=== PATIENT | female | born 1940 | race Caucasian/White ===

== ENCOUNTER 2016-07-29 11:54 | Observation (INO) | payer BC, MEDICARE ==
[~2016-07-29] VITALS: Ht 154.9 cm; Wt 78.0 kg
[2016-07-29] VITALS (7 sets, daily range): BP systolic 110–144; BP diastolic 66–80; PULSE 89–110; RESP 18–20; TEMP 98–98.8; O2SAT 92–97
[~2016-07-29 11:54] MED LIST: COLA100C3 PO; LEVO25TA4 PO; NIFE15TA PO; OXYC1CAP PO; ZYRT10TA PO
--- NOTE | 2016-07-29 12:12 | PD ---
HPI Chief Complaint: Neuro Symptoms/ Deficits Time Seen by Provider: 12:55 Travel History International Travel<30 days: No Contact w/Intl Traveler<30days: No Traveled to known affect area: No History of Present Illness HPI This is a 76-year-old female who was diagnosed with pancreatic cancer in April of this year. She presents via EMS for evaluation of general weakness. Per EMS they were called by her son who reports that she has a history of dementia, pancreatic cancer. She has been generally malaised today. On examination the patient is complaining of pain in her head and in her epigastric abdomen. History is limited secondary to patient being a poor historian. She is denying any chest pain, shortness of breath, nausea, vomiting , diarrhea, constipation, fevers, chills, cough, congestion. PFSH Past Medical History Hx Anticoagulant Therapy: No (pt had pe in 2008 and was placed on anticoag therapy but not taking it) Arthritis: Yes Anxiety: Yes Cardiovascular Problems: No Diminished Hearing: No Deep Vein Thrombosis: Yes (PE 2008) Endocrine: No GERD: Yes Genitourinary: No Immune Disorder: No Neurologic: No Reproductive: No Respiratory: No (allergies ) Immunizations Current: No : 1 Para: 0 Miscarriage: 1 : 0 Ectopic : No Ovarian Cysts: Yes Dilation and Curettage (D&C): Yes Tubal Ligation: No Past Surgical History Abdominal Surgery: Yes (APPY, CHOLEY, SPLEENECTOMY) Appendectomy: Yes Body Medical Devices: c spine pin Cholecystectomy: Yes Eye Surgery: Yes (LENS TRANSPLANT BILAT) Gynecologic Surgery: Yes (HYSTERECTOMY) Hysterectomy: Yes Oral Surgery: Yes (peridontal) Tonsillectomy: Yes Social History Alcohol Use: No Tobacco Use: No Substance Use: No Allergies-Medications (Allergen,Severity, Reaction): Coded Allergies: Codeine (Verified Allergy, Severe, 07/29/16) Penicillin (Verified Allergy, Severe, 07/29/16) Gluten (Verified Allergy, Unknown, 07/29/16) Sulfa (Verified Allergy, Unknown, 07/29/16) Reported Meds & Prescriptions Reported Meds & Active Scripts Active Colace (Docusate Sodium) 100 Mg Cap 100 Mg PO BID Oxycodone (Oxycodone HCl) 5 Mg Cap 5 Mg PO Q4H PRN Levothyroxine (Levothyroxine Sodium) 25 Mcg Tab 25 Mcg PO DAILY@0600 30 Days Nifedical XL (Nifedipine) 60 Mg Tab 60 Mg PO Q12HR 30 Days Reported Zyrtec Allergy (Cetirizine HCl) 10 Mg Tab 10 Mg PO DAILY Review of Systems ROS Limitations: Poor Historian Except as stated in HPI: all other systems reviewed are Neg Physical Exam Exam Limitations: Poor Historian Narrative GENERAL: Well-developed well-nourished female in no acute distress SKIN: Warm and dry. HEAD: Atraumatic. Normocephalic. EYES: Pupils equal and round. No scleral icterus. No injection or drainage. ENT: No nasal bleeding or discharge. Mucous membranes pink and moist. NECK: Trachea midline. No JVD. CARDIOVASCULAR: Regular rate and rhythm. No murmur appreciated. RESPIRATORY: No accessory muscle use. Clear to auscultation. Breath sounds equal bilaterally. GASTROINTESTINAL: Abdomen soft, tender to palpation in the epigastrium without guarding. MUSCULOSKELETAL: No obvious deformities. No clubbing. No cyanosis. No edema. NEUROLOGICAL: Awake and alert. No obvious cranial nerve deficits. Motor grossly within normal limits. Normal speech. Alert to person, place, not time. Data Data Last Documented VS Vital Signs Date Time Temp Pulse Resp B/P Pulse Ox O2 Delivery O2 Flow Rate FiO2 07/29/16 13:12 96 Room Air 07/29/16 12:11 105 18 07/29/16 12:03 98.7 110/66 Orders Electrocardiogram (07/29/16 12:10) Complete Blood Count With Diff (07/29/16 12:10) Comprehensive Metabolic Panel (07/29/16 12:10) Prothrombin Time / Inr (Pt) (07/29/16 12:10) Act Partial Throm Time (Ptt) (07/29/16 12:10) Lactic Acid Sepsis Protocol (07/29/16 12:10) Lipase (07/29/16 12:10) Ckmb (Isoenzyme) Profile (07/29/16 12:10) Troponin I (07/29/16 12:10) Urinalysis - C+S If Indicated (07/29/16 12:10) Blood Culture (07/29/16 12:10) Chest, Single Ap (07/29/16 12:10) Ecg Monitoring (07/29/16 12:10) Iv Access Insert/Monitor (07/29/16 12:10) Oximetry (07/29/16 12:10) Oxygen Administration (07/29/16 12:10) Ct Abd/Pel W Iv Contrast(Rout) (07/29/16 12:10) Ct Brain W/O Iv Contrast(Rout) (07/29/16 12:10) CKMB (07/29/16 12:25) CKMB% (07/29/16 12:25) Iohexol 350 Inj (Omnipaque 350 Inj) (07/29/16 14:39) Admit Order (Ed Use Only) (07/29/16 15:20) Place In Observation (07/29/16 ) Vital Signs (Adult) Q4H (07/29/16 15:21) Activity Oob With Assistance (07/29/16 15:21) ^ Acute Care Registered Nurse / Telemetry .CONTINUOUS (07/29/16 15:21) Diet Heart Healthy (07/29/16 Dinner) Sodium Chlor 0.9% 1000 Ml Inj (Ns 1000 M (07/29/16 15:21) Sodium Chloride 0.9% Flush (Ns Flush) (07/29/16 15:30) Sodium Chloride 0.9% Flush (Ns Flush) (07/29/16 21:00) Acetaminophen (Tylenol) (07/29/16 15:30) Ondansetron Inj (Zofran Inj) (07/29/16 15:30) Bisacodyl Supp (Dulcolax Supp) (07/29/16 15:30) Magnesium Hydroxide Liq (Milk Of Magnesi (07/29/16 15:30) Basic Metabolic Panel (Bmp) (07/30/16 06:00) Complete Blood Count With Diff (07/30/16 06:00) Troponin I (07/29/16 15:21) Troponin I (07/29/16 21:21) Electrocardiogram (07/29/16 15:30) Electrocardiogram (07/29/16 21:30) Resp Oxygen Jay C Titrat 1-4 L (07/29/16 ) Pt Request For Service (07/29/16 15:21) Naloxone Inj (Narcan Inj) (07/29/16 15:30) Ammonia (07/29/16 15:25) Labs Laboratory Tests Test 07/29/16 07/29/16 12:25 14:37 White Blood Count 14.2 TH/MM3 Red Blood Count 4.07 MIL/MM3 Hemoglobin 13.1 GM/DL Hematocrit 36.7 % Mean Corpuscular Volume 90.2 FL Mean Corpuscular Hemoglobin 32.2 PG Mean Corpuscular Hemoglobin 35.7 % Concent Red Cell Distribution Width 14.7 % Platelet Count 278 TH/MM3 Mean Platelet Volume 8.6 FL Neutrophils (%) (Auto) 53.1 % Lymphocytes (%) (Auto) 31.4 % Monocytes (%) (Auto) 12.0 % Eosinophils (%) (Auto) 2.7 % Basophils (%) (Auto) 0.8 % Neutrophils # (Auto) 7.5 TH/MM3 Lymphocytes # (Auto) 4.5 TH/MM3 Monocytes # (Auto) 1.7 TH/MM3 Eosinophils # (Auto) 0.4 TH/MM3 Basophils # (Auto) 0.1 TH/MM3 CBC Comment DIFF FINAL Differential Comment Prothrombin Time 14.6 SEC Prothromb Time International 1.3 RATIO Ratio Activated Partial 26.8 SEC Thromboplast Time Sodium Level 138 MEQ/L Potassium Level 3.8 MEQ/L Chloride Level 104 MEQ/L Carbon Dioxide Level 23.1 MEQ/L Anion Gap 11 MEQ/L Blood Urea Nitrogen 15 MG/DL Creatinine 1.11 MG/DL Estimat Glomerular Filtration 48 ML/MIN Rate Random Glucose 106 MG/DL Lactic Acid Level 1.6 mmol/L Calcium Level 8.5 MG/DL Total Bilirubin 1.5 MG/DL Aspartate Amino Transf 90 U/L (AST/SGOT) Alanine Aminotransferase 37 U/L (ALT/SGPT) Alkaline Phosphatase 244 U/L Total Creatine Kinase 103 U/L Creatine Kinase MB 1.8 NG/ML Troponin I 0.94 NG/ML Total Protein 6.7 GM/DL Albumin 2.3 GM/DL Lipase 25 U/L Urine Color YELLOW Urine Turbidity HAZY Urine pH 5.5 Urine Specific [place] GREATER THAN 1.050 Urine Protein 30 mg/dL Urine Glucose (UA) NEG mg/dL Urine Ketones 10 mg/dL Urine Occult Blood NEG Urine Nitrite NEG Urine Bilirubin NEG Urine Urobilinogen 2.0 MG/DL Urine Leukocyte Esterase NEG Urine RBC 3 /hpf Urine WBC 6 /hpf Urine Squamous Epithelial <1 /hpf Cells Urine Hyaline Casts 1 /lpf Urine Mucus FEW /lpf Microscopic Urinalysis Comment CULT NOT INDICATED MDM Medical Decision Making Medical Screen Exam Complete: Yes Emergency Medical Condition: Yes Medical Record Reviewed: Yes Interpretation(s) cbc wbc 14.2 trop 0.92 cmp cr 1.11, bili 1.5 ua 10 ketones, [address] abdomen and pelvis progression of disease with increase in size a pancreatic mass, increased upper abdominal lymph nodes and liver metastasis Differential Diagnosis Closed head injury, CVA, sepsis, metastasis, dehydration, electrolyte abnormality Narrative Course 1445: I received more information from the son who has just arrived. He reports that she has been increasingly confused over the past few months but she has no history of dementia. She has been more confused ever since this morning at 1 AM when she had a fall. She was complaining of a cramping sensation in one of her legs and she fell, didn't hit her head. No loss of consciousness. She has been generally weak today and confused.Lab work and imaging studies have been ordered. Her laboratory elbow for white count of 14, troponin of 0.94. She has denied chest pain or shortness of breath during her ED course. At this point in time the plan is to admit the patient for observation and further evaluation. The son does note that the patient was supposed to be admitted to [facility] for long-term care tomorrow. Procedures EKG Prior to Arrival: Yes Diagnosis Primary Impression: Elevated troponin Additional Impression: Generalized weakness Admitting Information Admitting Physician Requests: Observation Timur Niño Jul 29, 2016 12:12
--- NOTE | 2016-07-29 12:45 | RADRPT ---
EXAM DATE/TIME: 07/29/2016 12:38 [facility] COMPARISON: No previous studies available for comparison. INDICATIONS : Cough. MEDICAL HISTORY : Carcinoma, pancreas SURGICAL HISTORY : None. ENCOUNTER: Initial ACUITY: 1 day PAIN SCORE: 0/10 LOCATION: Bilateral chest FINDINGS: A single view of the chest demonstrates the lungs to be symmetrically aerated without evidence of mas s, infiltrate or effusion. The cardiomediastinal contours are unremarkable. Osseous structures demo nstrate ACDF hardware overlying the cervical spine. Subsegmental atelectasis versus linear scarring a t the right lung base with mild elevation of the right hemidiaphragm. CONCLUSION: Right basilar atelectasis versus scarring. Sandro Staples MD on July 29, 2016 at 12:43 Board Certified Radiologist. This report was verified electronically.
[2016-07-29 12:48] LABS: AUTOMATED NEUTROPHIL # 7.5 TH/MM3 (1.8-7.7); BASOPHIL # 0.1 TH/MM3 (0-0.2); BASOPHIL % 0.8 % (0.0-2.0); EOSINOPHIL # 0.4 TH/MM3 (0-0.4); EOSINOPHIL % 2.7 % (0.0-4.0); HEMATOCRIT 36.7 % (35.0-46.0); HEMO FLAGS DIFF FINAL; LYMPH % 31.4 % (9.0-44.0); LYMPHOCYTE # 4.5 TH/MM3 (1.0-4.8); MEAN CELL VOLUME 90.2 FL (80.0-100.0); MEAN CORPUSCULAR HEMOGLOBIN 32.2 PG (27.0-34.0); MEAN CORPUSCULAR HGB CONC 35.7 % (32.0-36.0); NEUT % 53.1 % (16.0-70.0); PLATELET COUNT 278 TH/MM3 (150-450); RED BLOOD COUNT 4.07 MIL/MM3 (4.00-5.30); RED CELL DISTRIBUTION WIDTH 14.7 % (11.6-17.2); WHITE BLOOD COUNT 14.2 TH/MM3 (4.0-11.0)
--- NOTE | 2016-07-29 12:54 | PD ---
Physical Exam Date Seen by Provider: Jul 29, 2016 Narrative I, Dr. Fontenot, have reviewed the advance practice practitioner's documentation and am in agreement, met with the patient face to face, made the diagnosis, and the medical decision making was done by me. *My assessment and Findings: The patient presents confused. She acts like dementia. EMS got a report that she has dementia. Unfortunately, there is no mention of her records of dementia. Data Data Last Documented VS Vital Signs Date Time Temp Pulse Resp B/P Pulse Ox O2 Delivery O2 Flow Rate FiO2 07/29/16 13:12 96 Room Air 07/29/16 12:11 105 18 07/29/16 12:03 98.7 110/66 Orders Electrocardiogram (07/29/16 12:10) Complete Blood Count With Diff (07/29/16 12:10) Comprehensive Metabolic Panel (07/29/16 12:10) Prothrombin Time / Inr (Pt) (07/29/16 12:10) Act Partial Throm Time (Ptt) (07/29/16 12:10) Lactic Acid Sepsis Protocol (07/29/16 12:10) Lipase (07/29/16 12:10) Ckmb (Isoenzyme) Profile (07/29/16 12:10) Troponin I (07/29/16 12:10) Urinalysis - C+S If Indicated (07/29/16 12:10) Blood Culture (07/29/16 12:10) Chest, Single Ap (07/29/16 12:10) Ecg Monitoring (07/29/16 12:10) Iv Access Insert/Monitor (07/29/16 12:10) Oximetry (07/29/16 12:10) Oxygen Administration (07/29/16 12:10) Ct Abd/Pel W Iv Contrast(Rout) (07/29/16 12:10) Ct Brain W/O Iv Contrast(Rout) (07/29/16 12:10) CKMB (07/29/16 12:25) CKMB% (07/29/16 12:25) Labs Laboratory Tests Test 07/29/16 12:25 White Blood Count 14.2 TH/MM3 Red Blood Count 4.07 MIL/MM3 Hemoglobin 13.1 GM/DL Hematocrit 36.7 % Mean Corpuscular Volume 90.2 FL Mean Corpuscular Hemoglobin 32.2 PG Mean Corpuscular Hemoglobin 35.7 % Concent Red Cell Distribution Width 14.7 % Platelet Count 278 TH/MM3 Mean Platelet Volume 8.6 FL Neutrophils (%) (Auto) 53.1 % Lymphocytes (%) (Auto) 31.4 % Monocytes (%) (Auto) 12.0 % Eosinophils (%) (Auto) 2.7 % Basophils (%) (Auto) 0.8 % Neutrophils # (Auto) 7.5 TH/MM3 Lymphocytes # (Auto) 4.5 TH/MM3 Monocytes # (Auto) 1.7 TH/MM3 Eosinophils # (Auto) 0.4 TH/MM3 Basophils # (Auto) 0.1 TH/MM3 CBC Comment DIFF FINAL Differential Comment Prothrombin Time 14.6 SEC Prothromb Time International 1.3 RATIO Ratio Activated Partial 26.8 SEC Thromboplast Time Sodium Level 138 MEQ/L Potassium Level 3.8 MEQ/L Chloride Level 104 MEQ/L Carbon Dioxide Level 23.1 MEQ/L Anion Gap 11 MEQ/L Blood Urea Nitrogen 15 MG/DL Creatinine 1.11 MG/DL Estimat Glomerular Filtration 48 ML/MIN Rate Random Glucose 106 MG/DL Lactic Acid Level 1.6 mmol/L Calcium Level 8.5 MG/DL Total Bilirubin 1.5 MG/DL Aspartate Amino Transf 90 U/L (AST/SGOT) Alanine Aminotransferase 37 U/L (ALT/SGPT) Alkaline Phosphatase 244 U/L Total Creatine Kinase 103 U/L Creatine Kinase MB 1.8 NG/ML Troponin I 0.94 NG/ML Total Protein 6.7 GM/DL Albumin 2.3 GM/DL Lipase 25 U/L MDM Supervised Visit with KARLIE: Yes Interpretation(s) EKG shows sinus tach at 109. No ST segment elevation or depression. Bailey Fontenot MD Jul 29, 2016 12:54
[2016-07-29 13:05] LABS: ALT (GPT) 37 U/L (10-53); ANION GAP 11 MEQ/L (5-15); AST (GOT) 90 U/L (15-37); BICARBONATE 23.1 MEQ/L (21.0-32.0); BLOOD UREA NITROGEN 15 MG/DL (7-18); CHLORIDE 104 MEQ/L (98-107); GLOMERULAR FILTRATION RATE 48 ML/MIN (>89); POTASSIUM 3.8 MEQ/L (3.5-5.1); SODIUM (NA) 138 MEQ/L (136-145)
[2016-07-29 13:07] LABS: APTT (PATIENT) 26.8 SEC (24.3-30.1); INTERNATIONAL NORMALIZED RATIO 1.3 RATIO; PROTHROMBIN TIME - PATIENT 14.6 SEC (9.8-11.6)
[2016-07-29 13:09] LABS: ALKALINE PHOSPHATASE 244 U/L (45-117); CREATINE KINASE 103 U/L (26-192); TOTAL BILIRUBIN ADULT 1.5 MG/DL (0.2-1.0)
[2016-07-29 13:28] LABS: CKMB 1.8 NG/ML (0.5-3.6)
--- NOTE | 2016-07-29 14:32 | RADRPT ---
EXAM DATE/TIME: 07/29/2016 14:00 [facility] COMPARISON: CT ABDOMEN & PELVIS W CONTRAST, May 24, 2016, 14:24. INDICATIONS : Generalized weakness; cephalgia. IV CONTRAST: 75 cc Omnipaque 350 (iohexol) IV ORAL CONTRAST: No oral contrast ingested. RADIATION DOSE: 20.2 CTDIvol (mGy) MEDICAL HISTORY : Carcinoma, pancreas. Deep venous thrombosis. SURGICAL HISTORY : Appendectomy. Cholecystectomy.Splenectomy.Hysterectomy ENCOUNTER: Initial ACUITY: 1 day PAIN SCALE: 6/10 LOCATION: Bilateral abdomen. TECHNIQUE: Volumetric scanning of the abdomen and pelvis was performed. Using automated exposure control and ad justment of the mA and/or kV according to patient size, radiation dose was kept as low as reasonably achievable to obtain optimal diagnostic quality images. FINDINGS: The patient is status post appendectomy cholecystectomy, splenectomy and hysterectomy. There is a rivera nt within the common bile duct is dilated. Diffuse pancreatic ductal dilatation is noted and atrophy of the body and tail of the pancreas. This is secondary to a hypodense mass at the head of the pancre as which is increased in size to the previous study. It measures 4 x 3 cm in transverse and AP dimens ion. The liver is abnormally heterogeneous with multiple low density masses seen, new from previous s tudy and characteristic of metastatic disease. For example a 1.4 cm mass in the left lobe lateral seg ment and medial segment are identified as well as a right lobe mass measuring 1.8 cm. There is a smal l amount of perihepatic free fluid, free fluid in the left upper quadrant. The adrenal glands, bilate ral kidneys and stomach are normal. A discrete fat plane with the second portion of the duodenum and the pancreatic mass is not seen. There are subcentimeter retroperitoneal lymph nodes identified which are increased in size from previous study. Free fluid is noted in the lower quadrants and pelvis. Di verticulosis of the sigmoid colon identified. Lung bases are clear. Osseous structures demonstrate de generative changes of the spine. Pneumobilia is identified. CONCLUSION: Progression of disease with increase in size of pancreatic mass, increased upper abdominal lymph node s and liver metastases. Sandro Staples MD on July 29, 2016 at 14:28 Board Certified Radiologist. This report was verified electronically.
--- NOTE | 2016-07-29 14:34 | RADRPT ---
EXAM DATE/TIME: 07/29/2016 14:01 [facility] COMPARISON: No previous studies available for comparison. INDICATIONS : Generalized weakness; cephalgia. RADIATION DOSE: 56.35 CTDIvol (mGy) MEDICAL HISTORY : Carcinoma, pancreas. Deep venous thrombosis. SURGICAL HISTORY : Cervical fusion. ENCOUNTER: Initial ACUITY: 1 day PAIN SCALE: 5/10 LOCATION: cranial TECHNIQUE: Multiple contiguous axial images were obtained of the head. Using automated exposure control and adj ustment of the mA and/or kV according to patient size, radiation dose was kept as low as reasonably a chievable to obtain optimal diagnostic quality images. FINDINGS: No signs of acute infarct, hemorrhage or mass patchy periventricular white matter disease and remote bilateral basal ganglia lacunar infarcts. No fractures. CONCLUSION: No acute disease. Sandro Staples MD on July 29, 2016 at 14:33 Board Certified Radiologist. This report was verified electronically.
[2016-07-29] MEDS ORDERED: IOHEXOL 350 MG/ML 10 ML VIAL (for RAD DIAG) IV ONE (14:39)
[2016-07-29 15:00] LABS: BLOOD, URINE NEG (NEG); COMMENT (UR) CULT NOT INDICATED; CULTURE IF INDICATED CULT NOT INDICATED; GLUCOSE,URINE NEG (NEG); HYALINE CAST, URINE 1 /lpf (RARE); KETONE, URINE 10 mg/dL (NEG); MUCUS URINE FEW /lpf (OCC); NITRITE,URINE NEG (NEG); PH, URINE 5.5 (5.0-8.5); SQUAMOUS EPITHELIAL CELL URINE <1 /hpf (0-5); URINE COLOR YELLOW (YELLW/STRAW)
[2016-07-29] MEDS ORDERED: SODIUM CHLORIDE 0.9% FLUSH 5 ML FLUSH FLUSH PRN (15:30)
[2016-07-29] MEDS ORDERED: ONDANSETRON HCL 4 MG/2 ML VIAL IVP PRN (15:30)
[2016-07-29] MEDS ORDERED: MAGNESIUM HYDROXIDE SUSP 30 ML CUP PO PRN (15:30)
[2016-07-29] MEDS ORDERED: BISACODYL 10 MG SUPP PR PRN (15:30)
[2016-07-29] MEDS ORDERED: ACETAMINOPHEN 325 MG TAB PO PRN (15:30)
[2016-07-29] MEDS ORDERED: NALOXONE HCL 0.4 MG/ML AMP IV PRN (15:30)
[2016-07-29] MEDS: SODIUM CHLOR 0.9% 1000 ML INJ 1,000 ML IV SCH (16:11)
--- NOTE | 2016-07-29 19:06 | HHI.HP ---
HPI Service [facility] Primary Care Physician Unknown Admission Diagnosis generalized weakness, elevated troponin Diagnoses: Chief Complaint: Fall, generalized weakness Travel History International Travel<30 Days: No Contact w/Intl Traveler <30 Da: No Traveled to Known Affected Are: No History of Present Illness Ms. Aquino is a pleasant 76 year old female with a recently diagnosed pancreatic cancer and currently under hospice care who presented to the ED on 07/29/2016 due to generalized weakness and two episodes of fall. At around 1:30AM, patient fell once but went to bed. She woke up and around 10:30AM , she went to the bathroom and as she was trying to return, she almost fell. She denies any chest pain, shortness of breath, fever, chills. Denies any nausea , vomiting, diaphoresis. She only complains of lower extremity weakness that led to episodes of fall. Denies any changes in her bowel or bladder habits. On arrival, patient is hemodynamically stable 138/68, HR 89, R 19, 96% on room air, 98.0F. First troponin was 0.94. CT head --> no acute findings. CT abd/ pelvis shows progressive pancreatic cancer with mets to liver. CXR shows some atelectasis. Further discussion with patient and son indicates - patient would like to remain in hospice. She has no chest pain or does not indicate any clinical signs indicative of cardiac cause. Moreover, they are not interested in invasive cardiac work up or PCI. However, she does want to be full code at this point in time. Review of Systems ROS Limitations: Other (Negative except as noted in the HPI. ) Past Family Social History Past Medical History Pancreatic cancer PE in 2008 Glaucoma Arthritis GERD Past Surgical History Eye lens implants, Cervical disc fusion Appendectomy, Cholecystectomy, Splenectomy, hysterectomy Reported Medications Colace (Docusate Sodium) 100 Mg Cap 100 Mg PO BID Oxycodone (Oxycodone HCl) 5 Mg Cap 5 Mg PO Q4H PRN Levothyroxine (Levothyroxine Sodium) 25 Mcg Tab 25 Mcg PO DAILY@0600 30 Days Nifedical XL (Nifedipine) 60 Mg Tab 60 Mg PO Q12HR 30 Days Zyrtec Allergy (Cetirizine HCl) 10 Mg Tab 10 Mg PO DAILY Allergies: Coded Allergies: Codeine (Verified Allergy, Severe, 07/29/16) Penicillin (Verified Allergy, Severe, 07/29/16) Gluten (Verified Allergy, Unknown, 07/29/16) Sulfa (Verified Allergy, Unknown, 07/29/16) Family History Father had sarcoma and lung cancer. Social History Patient does not smoke or drink alcohol. Physical Exam Vital Signs Vital Signs Date Time Temp Pulse Resp B/P Pulse Ox O2 Delivery O2 Flow Rate FiO2 07/29/16 17:00 98.8 97 18 141/71 97 Room Air 07/29/16 15:36 104 20 144/80 96 Room Air 07/29/16 14:00 98.8 110 20 129/73 96 Room Air 07/29/16 13:12 96 Room Air 07/29/16 13:12 96 Room Air 07/29/16 12:11 105 18 95 Room Air 07/29/16 12:03 98.7 105 18 110/66 Physical Exam GENERAL: This is a well-nourished, well-developed patient, in no apparent distress. SKIN: No rashes, ecchymoses or lesions. Warm and dry. HEAD: Atraumatic. Normocephalic. No temporal or scalp tenderness. EYES: Pupils equal round and reactive. No injection or drainage. ENT: Nose without bleeding, purulent drainage or septal hematoma. Airway patent. NECK: Trachea midline. No lymphadenopathy. Supple, nontender, no meningeal signs. CARDIOVASCULAR: Regular rate and rhythm without murmurs, gallops, or rubs. No JVD. RESPIRATORY: Clear to auscultation. Breath sounds equal bilaterally. No wheezes , rales, or rhonchi. GASTROINTESTINAL: Abdomen soft, non-tender, nondistended. No guarding. MUSCULOSKELETAL: Extremities without clubbing, cyanosis, or edema. NEUROLOGICAL: Awake and alert. Cranial nerves II through XII intact. No focal neurological deficits. Normal speech. Laboratory Laboratory Tests Test 07/29/16 07/29/16 07/29/16 12:25 14:37 15:30 White Blood Count 14.2 Red Blood Count 4.07 Hemoglobin 13.1 Hematocrit 36.7 Mean Corpuscular Volume 90.2 Mean Corpuscular Hemoglobin 32.2 Mean Corpuscular Hemoglobin 35.7 Concent Red Cell Distribution Width 14.7 Platelet Count 278 Mean Platelet Volume 8.6 Neutrophils (%) (Auto) 53.1 Lymphocytes (%) (Auto) 31.4 Monocytes (%) (Auto) 12.0 Eosinophils (%) (Auto) 2.7 Basophils (%) (Auto) 0.8 Neutrophils # (Auto) 7.5 Lymphocytes # (Auto) 4.5 Monocytes # (Auto) 1.7 Eosinophils # (Auto) 0.4 Basophils # (Auto) 0.1 CBC Comment DIFF FINAL Differential Comment Prothrombin Time 14.6 Prothromb Time International 1.3 Ratio Activated Partial 26.8 Thromboplast Time Sodium Level 138 Potassium Level 3.8 Chloride Level 104 Carbon Dioxide Level 23.1 Anion Gap 11 Blood Urea Nitrogen 15 Creatinine 1.11 Estimat Glomerular Filtration 48 Rate Random Glucose 106 Lactic Acid Level 1.6 Calcium Level 8.5 Total Bilirubin 1.5 Aspartate Amino Transf 90 (AST/SGOT) Alanine Aminotransferase 37 (ALT/SGPT) Alkaline Phosphatase 244 Total Creatine Kinase 103 Creatine Kinase MB 1.8 Troponin I 0.94 Total Protein 6.7 Albumin 2.3 Lipase 25 Urine Color YELLOW Urine Turbidity HAZY Urine pH 5.5 Urine Specific [place] GREATER THAN 1.050 Urine Protein 30 Urine Glucose (UA) NEG Urine Ketones 10 Urine Occult Blood NEG Urine Nitrite NEG Urine Bilirubin NEG Urine Urobilinogen 2.0 Urine Leukocyte Esterase NEG Urine RBC 3 Urine WBC 6 Urine Squamous Epithelial <1 Cells Urine Hyaline Casts 1 Urine Mucus FEW Microscopic Urinalysis Comment CULT NOT INDICATED Ammonia 30 Date/Time Procedure Status Source Growth 07/29/16 12:36 Aerobic Blood Culture Received Blood Peripheral Pending 07/29/16 12:36 Anaerobic Blood Culture Received Blood Peripheral Pending Result Diagram: 07/29/16 1225 07/29/16 1225 Imaging Last Impressions Head CT 07/29/16 1210 Signed Impressions: Service Date/Time: Friday, July 29, 2016 14:01 - CONCLUSION: No acute disease. Sandro Staples MD Chest X-Ray 07/29/16 1210 Signed Impressions: Service Date/Time: Friday, July 29, 2016 12:38 - CONCLUSION: Right basilar atelectasis versus scarring. Sandro Staples MD Abdomen/Pelvis CT 07/29/16 1210 Signed Impressions: Service Date/Time: Friday, July 29, 2016 14:00 - CONCLUSION: Progression of disease with increase in size of pancreatic mass, increased upper abdominal lymph nodes and liver metastases. Sandro Staples MD Assessment and Plan Problem List: (1) Generalized weakness ICD Code: R53.1 Status: Acute (2) Pancreatic cancer ICD Code: C25.9 Status: Acute (3) Elevated troponin ICD Code: R79.89 Status: Acute (4) Hypothyroidism ICD Code: E03.9 Status: Acute Assessment and Plan Nikos Woodward with a recent diagnosis of pancreatic cancer currently on hospice program ([facility] hospice) who presents to the ED on 07/29/2016 due to generalized weakness, fall. Patient denies any chest pain, N/V, diaphoresis. Her first troponin was 0.94. No EKG evidence of acute ischemia. Patient is a Restoration and does not wish to get any blood transfusion. - Generalized weakness - Fall - Possibly progression of cancer and also due to deconditioning - Unfortunately, best course of action is likely to be hospice/comfort care. - Pancreatic cancer - Dr. Harry followed this patient. There was a discussion about surgical intervention if performance status improves. - However, due to no significant improvement, patient went with hospice. - Will consult CM to get in touch with [place] hospice program. - Elevated troponin - etiology uknown. Creatinine is only mildly elevated. - Thus this troponin elevation could be due to supply demand mismatch. - Per patient's son, her life expectancy is 'months'. Thus, invasive cardiac work up/PCI/stents may not be appropriate. - It would be better to optimize her medication. - Hypothyroidism - continue levothyroxine. Full code. SCDs. Gissel Mayo DO Jul 29, 2016 19:06
[2016-07-29] MEDS: SODIUM CHLORIDE 0.9% FLUSH 5 ML FLUSH FLUSH SCH (20:57)
[2016-07-29 21:04] LABS: MEAN CORPUSCULAR HGB CONC 36.9 % (32.0-36.0)
[2016-07-30] VITALS (10 sets, daily range): BP systolic 115–143; BP diastolic 56–70; PULSE 86–99; RESP 18–20; TEMP 97.4–98.2; O2SAT 92–95
[2016-07-30] MEDS: SODIUM CHLOR 0.9% 1000 ML INJ 1,000 ML IV SCH (01:05)
[2016-07-30 05:15] LABS: AUTOMATED NEUTROPHIL # 7.7 TH/MM3 (1.8-7.7); BASOPHIL # 0.3 TH/MM3 (0-0.2); BASOPHIL % 1.6 % (0.0-2.0); EOSINOPHIL # 0.3 TH/MM3 (0-0.4); EOSINOPHIL % 1.7 % (0.0-4.0); HEMATOCRIT 35.1 % (35.0-46.0); LYMPH % 45.3 % (9.0-44.0); LYMPHOCYTE # 8.7 TH/MM3 (1.0-4.8); MEAN CELL VOLUME 90.4 FL (80.0-100.0); MEAN CORPUSCULAR HEMOGLOBIN 33.4 PG (27.0-34.0); MONO % 11.3 % (0.0-8.0); NEUT % 40.1 % (16.0-70.0); PLATELET COUNT 249 TH/MM3 (150-450); RED BLOOD COUNT 3.88 MIL/MM3 (4.00-5.30); RED CELL DISTRIBUTION WIDTH 14.9 % (11.6-17.2); WHITE BLOOD COUNT 19.2 TH/MM3 (4.0-11.0)
[2016-07-30 05:20] LABS: HEMO FLAGS AUTO DIFF
[2016-07-30 05:37] LABS: BICARBONATE 24.1 MEQ/L (21.0-32.0); POTASSIUM 3.8 MEQ/L (3.5-5.1)
[2016-07-30] MEDS: LEVOTHYROXINE SODIUM 25 MCG TAB PO SCH (06:00)
[2016-07-30 07:48] LABS: BANDS 1 % (0-6); EOSINOPHILS 2 % (0-4); NEUTROPHIL # MANUAL DIFF 8.6 TH/MM3 (1.8-7.7); POLYS (SEG NEUTROPHILS) 44 % (16-70); WBC DIFF SAMPLE 100
[2016-07-30 07:49] LABS: PLATELET ESTIMATE SMEAR NORMAL (NORMAL); PLATELET MORPHOLOGY NORMAL (NORMAL); SCAN/DIFF FINAL DIFF MANUAL; SMUDGE CELLS PRESENT PRESENT
[2016-07-30] MEDS: CETIRIZINE HCL 10 MG TAB PO SCH (08:35)
[2016-07-30] MEDS: NIFEdipine 60 MG SUSTAINED RELEASE TAB PO SCH ×2 (08:35→20:01)
[2016-07-30] MEDS: SODIUM CHLORIDE 0.9% FLUSH 5 ML FLUSH FLUSH SCH ×2 (08:35→20:03)
[2016-07-30] MEDS: DOCUSATE SODIUM 100 MG CAP PO SCH ×2 (08:35→20:01)
--- NOTE | 2016-07-30 08:46 | HHI.PR ---
Subjective Remarks Follow up for generalized weakness. Patient is currently doing well. She was able to sleep well last night. Waiting for breakfast. Denies any chest pain, shortness of breath, fever or chills. Objective Vitals Vital Signs Date Time Temp Pulse Resp B/P Pulse Ox O2 Delivery O2 Flow Rate FiO2 07/30/16 07:49 98.2 88 20 143/69 95 07/30/16 07:31 94 21 07/30/16 04:32 97.4 92 20 135/64 93 07/30/16 00:09 98.0 96 20 140/70 93 07/29/16 21:16 98.0 89 19 138/68 96 07/29/16 19:30 92 07/29/16 17:00 98.8 97 18 141/71 97 Room Air 07/29/16 15:36 104 20 144/80 96 Room Air 07/29/16 14:00 98.8 110 20 129/73 96 Room Air 07/29/16 13:12 96 Room Air 07/29/16 13:12 96 Room Air 07/29/16 12:11 105 18 95 Room Air 07/29/16 12:03 98.7 105 18 110/66 Result Diagram: 07/30/16 0428 07/30/16 0428 Imaging Last Impressions Head CT 07/29/16 1210 Signed Impressions: Service Date/Time: Friday, July 29, 2016 14:01 - CONCLUSION: No acute disease. Sandro Staples MD Chest X-Ray 07/29/160 Signed Impressions: Service Date/Time: Friday, July 29, 2016 12:38 - CONCLUSION: Right basilar atelectasis versus scarring. Sandro Staples MD Abdomen/Pelvis CT 07/29/16 1210 Signed Impressions: Service Date/Time: Friday, July 29, 2016 14:00 - CONCLUSION: Progression of disease with increase in size of pancreatic mass, increased upper abdominal lymph nodes and liver metastases. Sandro Staples MD Objective Remarks GENERAL: Alert, NAD SKIN: Warm and dry. HEAD: Normocephalic. EYES: No scleral icterus. No injection or drainage. NECK: Supple, trachea midline. No JVD or lymphadenopathy. CARDIOVASCULAR: Regular rate and rhythm without murmurs, gallops, or rubs. RESPIRATORY: Breath sounds equal bilaterally. No accessory muscle use. GASTROINTESTINAL: Abdomen soft, non-tender, nondistended. MUSCULOSKELETAL: No cyanosis, or edema. BACK: Nontender without obvious deformity. No CVA tenderness. Procedures None A/P Problem List: (1) Generalized weakness ICD Code: R53.1 Status: Acute (2) Pancreatic cancer ICD Code: C25.9 Status: Acute (3) Elevated troponin ICD Code: R79.89 Status: Acute (4) Hypothyroidism ICD Code: E03.9 Status: Acute Assessment and Plan Ms. Aquino, 76 with a recent diagnosis of pancreatic cancer currently on hospice program ([facility]) who presents to the ED on 07/29/2016 due to generalized weakness, fall. Patient denies any chest pain, N/V, diaphoresis. Her first troponin was 0.94. No EKG evidence of acute ischemia. Patient is a [employer] and does not wish to get any blood transfusion. - Generalized weakness - Fall - Possibly progression of cancer and also due to deconditioning - Unfortunately, best course of action is likely to be hospice/comfort care. - Discussed with CM - she will contact [facility]. - Pancreatic cancer - Dr. Harry followed this patient. There was a discussion about surgical intervention if performance status improves. - However, due to no significant improvement, patient went with hospice. - Elevated troponin - etiology uknown. Creatinine is only mildly elevated. - Thus this troponin elevation could be due to supply demand mismatch. - Per patient's son, her life expectancy is 'months'. Thus, invasive cardiac work up/PCI/stents may not be appropriate. - It would be better to optimize her medication. I discussed with Dr. Harry ( Oncology) who agreed with this plan. - Will discharge patient on Aspirin 81mg Qday and Clopidogrel 75mg Qday with Protonix 40mg Qday as well. - Hypothyroidism - continue levothyroxine. Full code. SCDs. Possible discharge today back with hospice. Gissel Mayo DO Jul 30, 2016 8:46 am
--- NOTE | 2016-07-30 17:44 | EKG ---
Date Performed: 07/29/2016 Time Performed: 13:23:25 PTAGE: 76 years EKG: SINUS TACHYCARDIA Nonspecific ST-T wave changes. When compared to previous tracing, the pat ient is now Tachycardic. ABNORMAL RHYTHM ECG PREVIOUS TRACING : 05/25/2016 07.13 DOCTOR: Opal Arriola Interpretating Date/Time 07/30/2016 17:43:30
--- NOTE | 2016-07-30 17:47 | EKG ---
Date Performed: 07/29/2016 Time Performed: 18:22:24 PTAGE: 76 years EKG: SINUS TACHYCARDIA BORDERLINE LEFT AXIS DEVIATION PATTERN CONSISTENT WITH PULMONARY DISEASE Nonspecific ST-T wave changes. When compared to previous tracing, likely no significant change. ABNOR MAL ECG PREVIOUS TRACING : 07/29/2016 13.23 DOCTOR: Opal Arriola Interpretating Date/Time 07/30/2016 17:45:05
--- NOTE | 2016-07-30 17:49 | EKG ---
Date Performed: 07/29/2016 Time Performed: 21:40:16 PTAGE: 76 years EKG: Sinus rhythm NONSPECIFIC ST & T-WAVE ABNORMALITY When compared to previous tracing, the patient is no longer Tach ycadic. BORDERLINE ECG PREVIOUS TRACING : 07/29/2016 18.22 DOCTOR: Opal Arriola Interpretating Date/Time 07/30/2016 17:46:26
[2016-07-31 04:06] VITALS: BP 125/60; PULSE 100; RESP 20; TEMP 97.6; O2SAT 95
[2016-07-31] MEDS: LEVOTHYROXINE SODIUM 25 MCG TAB PO SCH (05:29)
[2016-07-31 07:49] VITALS: BP 117/74; PULSE 98; RESP 18; TEMP 98.1; O2SAT 95
[2016-07-31] MEDS ORDERED: PANTOPRAZOLE SOD 40 MG DELAYED RELEASE TAB PO SCH (09:00)
[2016-07-31] MEDS ORDERED: CLOPIDOGREL 75 MG TAB PO SCH (09:00)
[2016-07-31] MEDS ORDERED: ASPIRIN EC 81 MG TABEC PO SCH (09:00)
[2016-07-31 09:45] VITALS: PULSE 95
[2016-07-31] MEDS: SODIUM CHLORIDE 0.9% FLUSH 5 ML FLUSH FLUSH SCH (09:45)
[2016-07-31] MEDS: CETIRIZINE HCL 10 MG TAB PO SCH (09:45)
[2016-07-31] MEDS: NIFEdipine 60 MG SUSTAINED RELEASE TAB PO SCH (09:45)
[2016-07-31] MEDS: DOCUSATE SODIUM 100 MG CAP PO SCH (09:45)
--- NOTE | 2016-07-31 10:48 | HHI.PR ---
Subjective Remarks Follow up for Generalized weakness in a patient with pancreatic cancer. Ms. Aquino is doing well. She wants to be discharged soon so that she can sleep in her own bed. No acute concerns. Objective Vitals Vital Signs Date Time Temp Pulse Resp B/P Pulse Ox O2 Delivery O2 Flow Rate FiO2 07/31/16 07:49 98.1 98 18 117/74 95 07/31/16 04:06 97.6 100 20 125/60 95 07/30/16 23:47 97.4 99 20 128/61 93 07/30/16 20:00 92 07/30/16 20:00 93 07/30/16 19:25 97.6 94 20 115/56 95 07/30/16 16:38 97.9 86 20 124/65 95 07/30/16 14:24 18 07/30/16 11:58 97.9 89 18 120/60 95 Result Diagram: 07/30/16 0428 07/30/16 0428 Imaging Last Impressions Head CT 07/29/16 1210 Signed Impressions: Service Date/Time: Friday, July 29, 2016 14:01 - CONCLUSION: No acute disease. Sandro Staples MD Chest X-Ray 07/29/16 1210 Signed Impressions: Service Date/Time: Friday, July 29, 2016 12:38 - CONCLUSION: Right basilar atelectasis versus scarring. Sandro Staples MD Abdomen/Pelvis CT 07/29/16 1210 Signed Impressions: Service Date/Time: Friday, July 29, 2016 14:00 - CONCLUSION: Progression of disease with increase in size of pancreatic mass, increased upper abdominal lymph nodes and liver metastases. Sandro Staples MD Objective Remarks GENERAL: Alert, NAD SKIN: Warm and dry. HEAD: Normocephalic. EYES: No scleral icterus. No injection or drainage. NECK: Supple, trachea midline. No JVD or lymphadenopathy. CARDIOVASCULAR: Regular rate and rhythm without murmurs, gallops, or rubs. RESPIRATORY: Breath sounds equal bilaterally. No accessory muscle use. GASTROINTESTINAL: Abdomen soft, non-tender, nondistended. MUSCULOSKELETAL: No cyanosis, or edema. BACK: Nontender without obvious deformity. No CVA tenderness. Procedures None A/P Problem List: (1) Generalized weakness ICD Code: R53.1 Status: Acute (2) Pancreatic cancer ICD Code: C25.9 Status: Acute (3) Elevated troponin ICD Code: R79.89 Status: Acute (4) Hypothyroidism ICD Code: E03.9 Status: Acute Assessment and Plan Ms. Aquino, 76 with a recent diagnosis of pancreatic cancer currently on hospice program ([facility]) who presents to the ED on 07/29/2016 due to generalized weakness, fall. Patient denies any chest pain, N/V, diaphoresis. Her first troponin was 0.94. No EKG evidence of acute ischemia. Patient is a [employer] and does not wish to get any blood transfusion. - Generalized weakness - Fall - Possibly progression of cancer and also due to deconditioning - Unfortunately, best course of action is likely to be hospice/comfort care. - Discussed with CM - Patient will be going to [facility]ice. - Pancreatic cancer - Dr. Harry followed this patient. There was a discussion about surgical intervention if performance status improves. - However, due to no significant improvement, patient went with hospice. - Elevated troponin - etiology uknown. Creatinine is only mildly elevated. - Thus this troponin elevation could be due to supply demand mismatch. - Per patient's son, her life expectancy is 'months'. Thus, invasive cardiac work up/PCI/stents may not be appropriate. - It would be better to optimize her medication. I discussed with Dr. Harry ( Oncology) who agreed with this plan. - Will discharge patient on Aspirin 81mg Qday and Clopidogrel 75mg Qday with Protonix 40mg Qday as well. - Hypothyroidism - continue levothyroxine. Full code. SCDs. Discharge patient to home Condition on discharge: Improved Heart healthy Diet as tolerated Ad Claudia activity Rx written: - Aspirin 81mg Qday - Plavix 75mg Qday - Protonix 40mg Qday. Please note : We recommend indefinite aspirin 81mg Qday and at least one month of Plavix and if possible 12 months of Plavix for NSTEMI. Follow-up with primary care physician within one week. Gissel Mayo DO Jul 31, 2016 10:48 am
[2016-07-31] MEDS ORDERED: ASPI81TA11 PO (10:55)
[2016-07-31] MEDS ORDERED: PANT40TA3 PO (10:55)
[2016-07-31] MEDS ORDERED: PLAV75TA29 PO (10:55)
== END 2016-07-31 13:57 | disposition home or self-care (01) ==
LOC: NEPE 11:54 → NEDA 15:21 → NEPHCDU 20:31
PROVIDERS: ADMIT Hospitalist; ATTEND Hospitalist
DX: R53.1 Weakness (principal); C25.9 Malignant neoplasm of pancreas, unspecified; C78.7 Secondary malignant neoplasm of liver and intrahepatic bile duct; R74.8 Abnormal levels of other serum enzymes; K21.9 Gastro-esophageal reflux disease without esophagitis; E03.9 Hypothyroidism, unspecified; F03.90 Unspecified dementia, unspecified severity, without behavioral disturbance, psychotic disturbance, mood disturbance, and anxiety; W19.XXXA Unspecified fall, initial encounter; Y92.019 Unspecified place in single-family (private) house as the place of occurrence of the external cause; Z86.711 Personal history of pulmonary embolism; H40.9 Unspecified glaucoma; Z96.1 Presence of intraocular lens
CPT/HCPCS: 70450; 71010; 74177; 80048; 80053; 81001; 82140; 82550; 82552; 83605; 83690; 84484; 85007; 85025; 85027; 85610; 85730; 87040; 93005; 97163; 99285; G0378; G8987; G8988; J7030; Q9967